=== PATIENT | male | born 1955 ===

== ENCOUNTER 2023-08-20 08:14 | Day surgery (SDC) | payer MEDICARE, SELFPAY ==
[2023-08-14 12:53] VITALS: BMI 24.0
[2023-08-20] VITALS (13 sets, daily range): BP systolic 98–119; BP diastolic 69–80; PULSE 78–97; RESP 12–18; TEMP 36.2–36.9; O2SAT 96–100; BMI 22.6
--- NOTE | 2023-08-20 07:09 | DI.RAD.S_ITS ---
PROCEDURE: XR HIP W PEL IF DONE LT 2V INDICATIONS: ERIC TECHNIQUE: AP pelvis with lateral view(s) of the left hip(s). COMPARISON: [facility], CR, XR PELVIS WITH LATERAL HIP LEFT, 05/22/2023, 17:07. FINDINGS: Bones: Left hip arthroplasty, hardware appears to be in appropriate position. Moderate right hip arthrosis also seen. Soft tissues: Pelvic calcifications probably phleboliths. Postsurgical soft tissue changes. IMPRESSION: Postsurgical changes following left hip arthroplasty. Dictated by: Avery Heart M.D. on 08/20/2023 at 15:16 Approved by: Avery Heart M.D. on 08/20/2023 at 15:16
[2023-08-20] MEDS: LACTATED RINGERS 1,000 ML 42 ML IV ×2 (09:16→12:47)
[2023-08-20] MEDS: ACETAMINOPHEN 325 MG TABLET 975 MG PO (09:54)
[2023-08-20] MEDS: CELECOXIB 200 MG CAPSULE PO (09:54)
[2023-08-20] MEDS: VANCOMYCIN 1,000 MG/200 ML PIGGYBACK 200 MG IV (10:28)
--- NOTE | 2023-08-20 11:00 | P.OP_ITS ---
Operative Date/Time/Diagnoses Date of procedure: 08/20/23 Time of procedure: 11:30 Pre-op diagnosis: left hip oa Post-op diagnosis: same Procedure & Clinicians Procedure: Left total hip arthroplasty anterior approach Same procedure as scheduled: Yes Indications: The patient has had progressively worsening left hip pain with radiographic andres ges consistent with arthritis. Non-operative management has failed and the patient has requested total hip replacement. The risks, benefits and alternatives to surgery were discussed with the patient prior to proceeding. Risks discussed included, but were not limited to, failure to relieve pain, leg length discrepancy, dislocation, stiffness, infection, nerve damage, deep venous thrombosis, pulmonary embolism, stroke, coma, heart attack, permanent paralysis and , as well as the potential need for eventual revision of the prosthetic. Surgeon: Bekah Fox Labor And Delivery Nurse: Elias Mora Anesthesia Type: General and Spinal Operative Notes Findings: Severe left hip osteoarthritis, hard bone, adequate stability Closure Type: primary Specimen(s): none sent Prosthetic devices, grafts, tissues, transplants, or devices: Fox and nephew 60 mm R3, neutral poly liner,one 6.5 mm screw, anthology a high offset size 5, 40 mm Oxinium head, +0 sleeve Estimated Blood Loss (mL): 250 Blood products transfused: none Procedure in detail: The patient was brought to the operating room. Patient was carefully positioned in the supine position. Time-out was performed and antibiotics were given. Anesthesia was induced. He was positioned in the on the table in order to allow hyperextension of the hip. The left lower extremity was prepped and draped in a standard sterile fashion. An anterior left hip incision was made 1 fingerbreadth lateral to the anterior superior iliac spine and extended distally towards the greater trochanter. Dissection was carried out through skin and subcutaneous tissues. Superficial hemostasis was achieved. The fascia over the tensor fascia jethro was defined and incised with a knife. Two Allis clamps were used to grasp the fascia. Tensor fascia jethro was retracted laterally. A gelpi retractor was placed. Dissection was carried out down along the neck. The circumflex vessels were carefully identified and cauterized with the Aqua Mantis. A PA was used during the procedure and was essential for intraoperative retraction and safe implantation of the components. There was good visualization of the femoral neck. A Cobra was placed superior to the neck and the gluteus fibers were carefully stripped from that superior aspect of the capsule. A 2nd retractor was placed along the inferior aspect of the neck. The rectus insertion along the capsule was partially released. A 3rd retractor that was then gently placed over the rim of the acetabulum under the rectus. Capsule was carefully incised and released from the intertrochanteric line circumferentially superior to the mid sagittal line and inferiorly to the mid sagittal line until the lesser trochanter was palpable. A tag stitch was placed both in the superior and inferior limb of the capsular insertion. Along the acetabulum capsule was also released up to the mid sagittal 12:00 position. A portion of the labrum was resected. A saw was used to perform an osteotomy at the level of the intertrochanteric line and the junction of the superior femoral neck leaving approximately 1 finger breath of residual inferior neck above the lesser trochanter. A 2nd cut was made along the femoral neck at the base of the head and a napkin ring of neck was removed. Corkscrew was placed in the femoral head and the head was removed without difficulty. Retractors were then repositioned around the acetabulum. Residual labrum was resected and additional osteophytes were r emoved. A reamer that was 4 mm below the templated size was placed by hand in the acetabulum and it was reamed to centralize the acetabulum. It was then reamed up to 2 under the templated size and fluoroscopy was brought in to confirm the position of the reaming and depth of reaming. I reamed 1 under the anticipated size. A trial cup was placed and noted that it was appropriately sized and fluoroscopy confirmed position and depth. The component was open and inserted without difficulty fluoroscopic imaging was used to confirm that the cup had been adequately seated and was well positioned. It was further stabilized with a single screw. Neutral poly liner was placed. The cup was tested and noted to be stable. Attention was then directed to the femur. The femur was gently hyperextended a dditional capsular release was performed as needed in order to allow adequate visualization of the proximal femur with elevation of the femur. Patient was placed in a hyperextended slightly adducted position with maximum external rotation. Box osteotome was used to check for any residual neck as well as sclerotic bone along the trochanter. Alburtis pepper was placed in the femur. Additional broaching was performed. Canal finder was used to determine the alignment of the canal and position. Size 1 broach was placed. The canal was then appropriately broached up to the templated size as long as there was adequate stability of the broach and serial advancement of the broach without excessive impingement. Specific attention was directed at avoiding varus attempting to direct the distal aspect of the broach more anteriorly and avoiding excessive anteversion. Trial reduction showed acceptable range of motion, good stability, no posterior impingement, anglican of leg length and appropriate lateral shuck. I also hyperflexed the hip and checked that there was no impingement anteriorly and there was good stability with flexion, adduction and internal rotation. Marcaine and Exparel were injected.. The stem was placed without difficulty. Repeat trial reduction and x-ray showed acceptable overall position, length, and no evidence of the femoral fracture. Final head was placed. Wound was meticulously irrigated with normal saline. The hip was reduced and additional Exparel and Marcaine were injected. The capsule was closed with interrupted nonabsorbable sutures. The fascia of the tensor was closed with interrupted and running Vicryl. No drain was placed. Any tensor fascia jethro muscle that appeared to be contused or injured which was a minimal amount was carefully resected. Capsule around the tensor was injected with Exparel and Marcaine. The skin was closed with barbed stitches for the subcutaneous tissue and skin. We also used surgical glue. The wound was dressed sterilely. Brief Betadine soak was also used and was meticulously irrigated with normal saline. Patient was transferred to recovery room in satisfactory condition. Complications: none Post-operative Condition: stable Disposition: Acute Care Plan for aftercare: The patient will be maintained on a standard total hip replacement protocol with weight bearing as tolerated and anterior hip precautions. The patient will receive Aspirin and sequential compression devices for DVT prophylaxis. The patient will be discharged home when safe for the home environment.
--- NOTE | 2023-08-20 11:00 | PM.PREOP ---
Pre-operative Note Interval Note History & Physical reviewed/Exam performed by Physician: Yes Changes to H&P: No
[2023-08-20] MEDS: CEFAZOLIN 2 GM/100 ML PREMIX 100 ML IV ×2 (11:34→20:17)
[2023-08-20] MEDS: TRANEXAMIC ACID 1,000 MG VIAL 1000 MG INJ ×2 (11:47→14:02)
--- NOTE | 2023-08-20 12:03 | SUR.OPER ---
Patient supine on padded Webster table, one arm on padded arm board at <90, other arm padded and secured with tape across patient's chest, both legs secured in padded traction boots and positioned per surgeon, padded post at patient's groin, pressure points checked and padded.
[2023-08-20] MEDS: BUPIVACAINE 0.25% (PF) 60 ML, EPINEPHrine 0.3 MG INJ (12:09)
--- NOTE | 2023-08-20 14:07 | DI.RAD.S_ITS ---
PROCEDURE: [id number] W PEL IF PERFORMED INDICATIONS: TOTAL LEFT HIP ARTHROPLASTY TECHNIQUE: AP pelvis with lateral view(s) of the left hip(s). COMPARISON: [facility], CR, XR HIP W PEL IF DONE LT 2V, 08/20/2023, 14:31. [facility] [place], CR, XR PELVIS WITH LATERAL HIP LEFT, 05/22/2023, 17:07. [facility], CR, XR HIP 2 VIEWS LEFT, 04/17/2023, 12:09. FINDINGS: Intraoperative fluoroscopy images demonstrate total hip arthroplasty and placement of hip prosthesis. IMPRESSION: 1. Expected postsurgical changes. Dictated by: Lakshmi Bellamy M.D. on 08/20/2023 at 17:15 Approved by: Lakshmi Bellamy M.D. on 08/20/2023 at 17:16
[2023-08-20] MEDS: BUPIVACAINE LIPOSOME 266 MG/20 ML VIAL INJ (14:13)
[2023-08-20] MEDS: OXYCODONE IR 5 MG TABLET PO (14:55)
[2023-08-20] MEDS: LACTATED RINGERS 1,000 ML 100 ML IV (15:39)
--- NOTE | 2023-08-20 19:58 | PC.NURSE ---
Addendum entered by Carlotta Coughlin R.N. 08/20/23 21:20: Patient discharged home with spouse via private vehicle @ 21:15. Reviewed discharge instructions with patient and spouse. All items removed from room and sent home with patient. Patient transported to car via wheelchair by [employer]. Original Note: Patient has discharge orders and requesting to go home. Has voided 600cc since coming to [facility]. Still has > 1000 cc in bladder. Declines to be straight cathed. Notified Dr. Chaves who stated that since he is voiding on his own he may discharge, but if he doesn't continue to urinate then he will need to return to the ER within 8 hours to be straight cathed. She also ordered 1 dose flomax to give here and will send prescription for flomax to [facility], per pt preferred pharmacy.
[2023-08-20] MEDS: TAMSULOSIN 0.4 MG CAPSULE PO (20:17)
== END 2023-08-20 21:15 | disposition home or self-care (01) ==
LOC: OR 08:17 → AC 08:18
PROVIDERS: PCP Internal Medicine; Referring Provider Orthopaedic Surgery; Visit Provider Orthopaedic Surgery
PROC: (CPT 27130; principal; 2023-08-20 10:45)
DX: M16.12 Unilateral primary osteoarthritis, left hip (principal); M25.752 Osteophyte, left hip
CPT/HCPCS: 27130; 73502; 73503; 76000; C1776; C9290; J0171; J0690; J1100; J1170; J2250; J2405; J2704; J3010